=== PATIENT | female | born 1995 | race Caucasian/White ===

== ENCOUNTER → 2019-07-06 17:03 | Outpatient (CLI) | payer OTHER, SELFPAY ==
[2019-07-06 16:19] VITALS: BMI 50.2
[2019-07-14 08:35] LABS: HPV APTIMA, High Risk Negative (Negative)
[2019-07-14 08:43] LABS: HPV Reflexed? YES, CHARGE PATIENT
== END ==
PROVIDERS: Referring Provider Obstetrics & Gynecology; Visit Provider Obstetrics & Gynecology
DX: Z12.4 Encounter for screening for malignant neoplasm of cervix (principal)
CPT/HCPCS: 87624; 88175; G0145

== ENCOUNTER → 2021-01-02 17:23 | Outpatient (CLI) | payer OTHER, SELFPAY ==
[2021-01-02 11:13] VITALS: BMI 39.6
[2021-01-06 01:24] LABS: HPV Reflexed? NOT INDICATED
== END ==
PROVIDERS: Referring Provider Obstetrics & Gynecology; Visit Provider Obstetrics & Gynecology
DX: Z12.4 Encounter for screening for malignant neoplasm of cervix (principal)
CPT/HCPCS: 88175; G0145

== ENCOUNTER 2022-01-22 11:29 | Outpatient (CLI) | payer OTHER, SELFPAY ==
[2022-01-22 12:12] LABS: Cholesterol 175 mg/dL (200); Glucose 93 mg/dL (74-106); High Density Lipoprotein 66 mg/dL; Thyroid Stim Hormone (TSH) 3.18 uIU/mL (0.358-3.74); Triglycerides 96 mg/dL; Very Low Density Lipoprotein 19 mg/dL (5-40)
== END 2022-01-22 23:59 | disposition home or self-care (01) ==
PROVIDERS: Referring Provider Obstetrics & Gynecology; Visit Provider Obstetrics & Gynecology
DX: Z01.419 Encounter for gynecological examination (general) (routine) without abnormal findings (principal)
CPT/HCPCS: 36415; 80061; 82947; 84443

== ENCOUNTER → 2023-08-09 | Outpatient (CLI) | payer OTHER, SELFPAY ==
[2023-08-14 16:53] LABS: HPV Reflexed? NOT INDICATED
== END | disposition home or self-care (01) ==
PROVIDERS: Visit Provider Obstetrics & Gynecology
DX: Z12.4 Encounter for screening for malignant neoplasm of cervix (principal)
CPT/HCPCS: 88175; G0145

== ENCOUNTER → 2025-02-25 | Outpatient (CLI) | payer OTHER, SELFPAY ==
[2025-02-27 10:08] LABS: Chlamydia By Nucleic Acid AMP Negative (Negative); Gonococcus By Nucleic Acid AMP Negative (Negative)
== END | disposition home or self-care (01) ==
LOC: LABSPEC 11:28
PROVIDERS: Referring Provider Nurse Practitioner Family; Visit Provider Nurse Practitioner Family
DX: Z20.2 Contact with and (suspected) exposure to infections with a predominantly sexual mode of transmission (principal)
CPT/HCPCS: 87491; 87591